=== PATIENT | male | born 1985 | race Caucasian/White ===

== ENCOUNTER 2017-01-19 19:59 | Emergency (ER) | payer OTHER ==
[~2017-01-19] VITALS: Ht 185.4 cm; Wt 84.7 kg
[2017-01-19 20:14] VITALS: TEMP 36.5; Ht 185.4 cm; Wt 84.7 kg
[2017-01-19] MEDS ORDERED: PRED20TA2 PO (21:52)
[2017-01-19 21:55] VITALS: BP 133/75; PULSE 79; O2SAT 95
--- NOTE | 2017-01-20 14:56 | EMERGENCY ROOM VISIT NOTE ---
ED Visit Note First contact with patient: 20:46 Chief Complaint: Low back pain. History of Present Illness: Mr. Graham is a 31-year-old white male who ambulates into the ED with a cane complaining of lumbar back pain. Historically patient reports he has significant lumbar degenerative disc disease from L3 to S1. He has been evaluated and treated at the pain management clinic in [place] and his orthopedic surgeon in [place]. He reports he regularly has steroid injections into his back, but does report he was supposed to have an injection 2 weeks ago and missed the appointment because of a work conflict. Patient reports he was sitting at work today and started experiencing severe lumbar back pain. This started approximately 5 hours ago. Since that time his pain has been constant. He describes it as a combination of deep achy and throbbing. The discomfort is described as a band across the lower vertebrae. His discomfort is slightly right-sided prominence which is typical. He rates his discomfort 9/10. The pain is radiating down the right leg, which is typical and into the left buttocks which is typical. This pain worsens with all movement of the back and minimally with palpation. He has not identified any alleviating factors related to the pain. He has taken [id number] medications without relief of his discomfort; he reports even though he is with pain management he only receives injections and no narcotics for his pain. He denies any associated symptoms including fevers, chills, sweats, skin eruptions , skin color changes, abdominal pain, nausea/vomiting, diarrhea, constipation, rectal bleeding, black/tarry stools, urinary symptoms, hematuria, lower extremity weakness/numbness/tingling. Review of Systems: As noted above in history of present illness. All body systems were reviewed and found to be negative as noted above. Past Medical History: As previously noted. Current Medications: Patient denies. Allergies to Medications: Patient denies. Social History: Patient is currently employed; he feels safe in his home environment; he denies tobacco use. Physical Examination: Vital Signs: Date Time Temp Pulse Resp B/P (MAP) Pulse Ox O2 Delivery O2 Flow Rate FiO2 01/19/17 21:55 79 18 133/75 95 01/19/17 20:14 36.5 99 18 124/82 98 Room Air GENERAL: 31-year-old male in mild to moderate distress due to pain, nontoxic- appearing, afebrile and hemodynamically stable. NEUROLOGICAL: Awake, alert and oriented to person, place and time. Answering questions appropriately and following commands. Good hand eye coordination. No focal motor or sensory deficits. SKIN: Warm, dry and pink. No soft tissue eruptions or trauma noted. BACK: No tenderness over the bony cervical and thoracic spine. Moderate tenderness in the L3 through S1 area over the bony spine and the paraspinous musculature. No palpable spasm, bony deformity, bony crepitus, swelling or ecchymosis. Patient had difficulty relaxing so he has a questionable positive right leg raise test on the right. Decreased range of motion in all movements at the waist due to pain. No CVA tenderness. THORAX: Lungs sounds are clear to auscultation and equal bilaterally with symmetrical chest wall. ABDOMEN: Flat, soft and nontender. Positive bowel sounds in all quadrants. No guarding, rigidity or organomegaly. LOWER EXTREMITIES: No gross bony deformity. No tenderness in the hip, knee, ankle or foot. 4/5 muscle strength in flexion, extension, abduction, abduction and internal and sternal rotation of the hips bilaterally, flexion and extension of the knees bilaterally, plantar flexion and dorsiflexion of the knees bilaterally. 2+ patellar reflexs; not able to elicit quadriceps reflexs; patient reports this is normal. Able to distinguish light sensations through all dermatomes. No calf tenderness or cords. Capillary refill was brisk and distal pulses were intact and equal bilaterally. ED Course: Patient is assessed as noted above. Patient's medication list was reviewed. Patient was offered narcotic pain control and refused but did request steroids; patient was given 60 mg of prednisone by mouth. Patient was educated about today's findings and instructed on his treatment plan ; he verbalizes understanding and agreement with this plan. Clinical Impression: Acute on chronic lumbar back pain. Disposition: Patient discharged home in stable condition; prior to departure he was reassessed and subjectively reported he was feeling better and rated his discomfort 6/10. Plan: Patient was encouraged to continue his current medications as prescribed. Patient was encouraged to alternate ibuprofen and acetaminophen. Patient was prescribed prednisone 60 mg once a day for 4 additional days. 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 Patient is encouraged return ED for worsening/uncontrolled pain, abdominal pain , fevers, lower extremity weakness/numbness/tingling, bowel and bladder dysfunction, genital paresthesias or any new/concerning symptoms.
== END 2017-01-19 21:56 | disposition home or self-care (01) ==
LOC: C.EDB 20:00 → C.EDD 21:56
DX: M54.5 Low back pain (principal); G89.29 Other chronic pain